=== PATIENT | male | born 1990 | race Asian ===

== ENCOUNTER 2024-12-19 12:11 | Emergency (ER) | payer MEDICAID ==
[~2024-12-19] VITALS: Ht 172.7 cm; Wt 76.0 kg
[2024-12-19 12:14] VITALS: O2SAT 98
[2024-12-19] MEDS ORDERED: PHEN1CAP86 MT (16:37)
[2024-12-19 16:45] VITALS: BP 135/79; PULSE 73; RESP 18; TEMP 37.2; O2SAT 100
[2024-12-19 16:54] LABS: INFLUENZA TYPE A Presumptive Negative (Pres. Neg.)
[2024-12-19 16:55] LABS: INFLUENZA TYPE B Presumptive Negative (Pres. Neg.)
== END 2024-12-19 16:47 | disposition home or self-care (01) ==
LOC: ER 12:11
DX: R05.9 Cough, unspecified (principal); Z79.899 Other long term (current) drug therapy
CPT/HCPCS: 71045; 87070; 87430; 87804; 99284